=== PATIENT | female | born 1930 | race Caucasian/White ===

== ENCOUNTER 2018-07-04 15:50 | Emergency (ER) | payer OTHER ==
[~2018-07-04] VITALS: Ht 170.2 cm; Wt 62.0 kg
[~2018-07-04 15:50] MED LIST: AMLO2.5T3 PO; AMOX1TAB12 PO; ASPI-515 PO; ASPI-621 PO; DOXY100T PO; FERR325T18 PO; FURO-93 PO; MECL-76 PO; METH-356 PO; METO25TA4 PO; METO50TA82 PO; OMEP-110 PO; ONDA4TAB13 PO; ONDA4TAB7 PO; PANT40TA3 PO; SPIR25TA5 PO; STOOL SOFTENER PO; TAMS-11 PO; [UNRECOGNIZED DRUG - OTHER] PO
[2018-07-04] MEDS ORDERED: VERA40TA PO (16:25)
[2018-07-04 16:38] LABS: BASOPHILS # (AUTO) 0.05 x10^3/uL (0-0.1); BASOPHILS % (AUTO) 1 % (0-1); EOSINOPHILS % (AUTO) 2 % (1-7); LYMPHOCYTES # (AUTO) 1.61 x10^3/uL (1-3.4); LYMPHOCYTES % (AUTO) 34 % (22-44); MD NO; MEAN CORPUSCULAR HEMOGLOBIN 21.8 pg (27.0-34.8); MEAN CORPUSCULAR HGB CONC 30.9 g/dL (32.4-35.8); MEAN CORPUSCULAR VOLUME 70.6 fL (80-100); MEAN PLATELET VOLUME 7.6 fL (7.4-10.4); MONOCYTES # (AUTO) 0.47 x10^3/uL (0.2-0.8); MONOCYTES % (AUTO) 10 % (2-9); NEUTROPHILS # (AUTO) 2.51 x10^3/uL (1.8-6.8); NEUTROPHILS % (AUTO) 53 % (42-75); PLATELET COUNT 200 x10^3/uL (130-400); RED CELL DISTRIBUTION WIDTH 20.3 % (9.6-15.2)
[2018-07-04 16:49] LABS: PROTHROMBIN TIME 10.4 Seconds (9.6-11.5)
[2018-07-04 16:51] LABS: ALANINE AMINOTRANSFERASE 20 U/L (12-78); ALBUMIN 3.7 g/dL (3.4-5.0); ANION GAP 8 mmol/L (5-15); CALCIUM 8.5 mg/dL (8.5-10.1); CHLORIDE 108 mmol/L (98-107)
[2018-07-04 16:53] LABS: ALKALINE PHOSPHATASE 90 U/L (45-117); BILIRUBIN,TOTAL 0.3 mg/dL (0.2-1.0); TOTAL PROTEIN 7.5 g/dL (6.4-8.2)
[2018-07-04 16:55] LABS: TROPONIN I < 0.015 ng/mL (0.000-0.045)
[2018-07-04 19:08] VITALS: BP 154/73
[2018-07-04] MEDS ORDERED: MORPHINE SULFATE 4 MG/ML, 1ML ONE (19:22)
[2018-07-04 19:23] VITALS: BP 156/63
[2018-07-04] MEDS ORDERED: morphine SULFATE 10 MG/ML, 1ML IVPush ONE (19:30)
[2018-07-04 19:38] VITALS: BP 144/65
[2018-07-04 19:54] VITALS: BP 164/68
[2018-07-04 19:55] VITALS: BP 164/68
== END 2018-07-04 20:17 | disposition home or self-care (01) ==
LOC: ED 17:53
DX: D50.9 Iron deficiency anemia, unspecified (principal); N28.9 Disorder of kidney and ureter, unspecified; I10 Essential (primary) hypertension; Z87.891 Personal history of nicotine dependence
CPT/HCPCS: 36415; 36430; 80053; 84484; 85025; 85610; 85730; 86850; 86870; 86900; 86902; 86922; 93005; 96374; 99285; J2270; P9016; 86923